=== PATIENT | female | born 1945 | race Two or more races ===

== ENCOUNTER 2018-04-13 20:05 | Emergency (ER) | payer MEDICARE, MEDICAID ==
[~2018-04-13] VITALS: Ht 162.6 cm; Wt 91.6 kg
[~2018-04-13 20:05] MED LIST: GLIP5TAB13 PO; LORA0.5T PO; LOSA25TA3 PO; SIMV10TA2 PO
--- NOTE | 2018-04-13 20:55 | NUR ---
PT BIB FAMILY, HEAD INJURY, -KO. DENIES NECK PAIN. PT STATES SHE SLIPPED FORWARD HIT HEAD ON HANDLE OF FRIDGE. ALSO C/O NAUSEA. PT AOX4. NAD NOTED. RESP EVEN AND UNLABORED. PT ON MONITOR IN BED 2. WILL CONTINUE TO MONITOR.
[2018-04-13 21:08] VITALS: BP 145/86
[2018-04-13] MEDS ORDERED: ONDANSETRON 4 MG TAB.RAPDIS ONE (21:09)
[2018-04-13] MEDS: ONDANSETRON 4 MG TAB.RAPDIS SL ONE (21:10)
[2018-04-13] MEDS ORDERED: PROCHLORPERAZINE EDISYLATE 10 MG/2 ML VIAL ONE (22:56)
[2018-04-13] MEDS: PROCHLORPERAZINE EDISYLATE 10 MG/2 ML VIAL IM ONE (23:06)
--- NOTE | 2018-04-13 23:25 | NUR ---
PT TAKEN TO RADIOLOGY VIA [facility]
--- NOTE | 2018-04-14 00:30 | NUR ---
Patient discharged to home in stable condition. Written and verbal after care instructions given. Patient verbalizes understanding of instruction. PT AMBULATORY WITH STEADY GAIT.
== END 2018-04-14 01:04 | disposition home or self-care (01) ==
LOC: ER 20:10
DX: S09.8XXA Other specified injuries of head, initial encounter (principal); M50.322 Other cervical disc degeneration at C5-C6 level; M50.323 Other cervical disc degeneration at C6-C7 level; R11.0 Nausea; R51 Headache; F41.9 Anxiety disorder, unspecified; I10 Essential (primary) hypertension; E78.5 Hyperlipidemia, unspecified; I25.10 Atherosclerotic heart disease of native coronary artery without angina pectoris; E11.9 Type 2 diabetes mellitus without complications; Z98.890 Other specified postprocedural states; Z90.710 Acquired absence of both cervix and uterus; Z88.2 Allergy status to sulfonamides; Z88.1 Allergy status to other antibiotic agents; Z88.5 Allergy status to narcotic agent; Z88.8 Allergy status to other drugs, medicaments and biological substances; Z88.0 Allergy status to penicillin; W01.198A Fall on same level from slipping, tripping and stumbling with subsequent striking against other object, initial encounter; Y93.89 Activity, other specified; Y92.000 Kitchen of unspecified non-institutional (private) residence as the place of occurrence of the external cause; Y99.8 Other external cause status
CPT/HCPCS: 70450-TC; 72125-TC; J0780; Q0162

== ENCOUNTER 2024-11-26 17:05 | Inpatient (IN) | payer MEDICARE, OTHER ==
[~2024-11-26] VITALS: Ht 165.1 cm; Wt 87.5 kg
[2024-11-26 17:40] LABS: PLATELET COUNT (AUTO) 208 K/uL (150-450); RED BLOOD CELL COUNT(AUTO) 4.35 MIL/uL (4.0-5.2); RED CELL DISTRIBUTION WIDTH 13.9 % (11.5-15.0); WHITE BLOOD COUNT (AUTO) 7.4 K/uL (4.3-11.0)
[2024-11-26] MEDS ORDERED: METF-440 PO (17:44)
[2024-11-26] MEDS ORDERED: METO-357 PO (17:44)
[2024-11-26] MEDS ORDERED: FLEC50TA2 PO (17:44)
[2024-11-26] MEDS ORDERED: APIX5TAB PO (17:44)
[2024-11-26] MEDS ORDERED: ERGO500093 PO (17:45)
[2024-11-26] MEDS ORDERED: ROSU10TA29 PO (17:45)
[2024-11-26] MEDS ORDERED: OMEP20CA15 PO (17:45)
[2024-11-26] MEDS ORDERED: PARO10TA4 PO (17:45)
[2024-11-26] MEDS ORDERED: CLON0.5T4 PO (17:45)
[2024-11-26] MEDS ORDERED: CETI10TA14 PO (17:45)
[2024-11-26] MEDS ORDERED: GABA-532 PO (17:45)
[2024-11-26] MEDS ORDERED: SITA1TAB6 PO (17:45)
[2024-11-26] MEDS: DILTIAZEM HCL 25 MG IV IV ONE (17:51)
[2024-11-26] MEDS ORDERED: DILTIAZEM HCL 50 MG IV ONE ×2 (17:52→18:37)
[2024-11-26 17:54] LABS: CALCIUM, SERUM 8.5 mg/dL (8.5-10.1); CREATININE 0.7 mg/dL (0.6-1.3); SODIUM SERUM 135 mmol/L (136-145); UREA NITROGEN, BLOOD 23 mg/dL (7-18)
[2024-11-26 18:00] LABS: ASPARTATE AMINOTRANSFERASE 22 U/L (15-37); TOTAL PROTEIN, SERUM 6.4 g/dL (6.4-8.2)
[2024-11-26] MEDS: DILTIAZEM HCL 50 MG IV IV ONE (18:43)
[2024-11-26] MEDS: DILTIAZEM HCL IV 125 MG in IV D5W 100 ML IV ONE (19:25)
[2024-11-26] MEDS ORDERED: ONDANSETRON HCL/PF 4 MG/2 ML VIAL IVP PRN (19:30)
[2024-11-26] MEDS ORDERED: DEXTROSE 50%-WATER 50 ML DISP.SYRIN IV PRN (19:30)
[2024-11-26] MEDS ORDERED: GABAPENTIN 100 MG CAPSULE PO PRN (20:00)
[2024-11-26 20:35] LABS: INR 0.97 (0.91-1.10)
[2024-11-26 22:00] VITALS: BP 111/62; TEMP 98.3; O2SAT 96
[2024-11-26] MEDS: DILTIAZEM HCL IV 125 MG in IV NS 0.9% 100 ML IV PRN (22:09)
[2024-11-26] MEDS: BLOOD SUGAR DIAGNOSTIC 1 EACH STRIP IN SCH (22:14)
[2024-11-26] MEDS: INSULIN REGULAR, HUMAN 100 UNIT/ML 3 ML VIAL SQ PRN (22:15)
[2024-11-26 22:30] VITALS: BP 91/68; O2SAT 95
[2024-11-26 23:00] VITALS: BP 100/62; O2SAT 95
[2024-11-26 23:30] VITALS: BP 93/65; O2SAT 93
[2024-11-26] MEDS: ACETAMINOPHEN 325 MG TABLET PO PRN (23:56)
[2024-11-27] VITALS (27 sets, daily range): BP systolic 88–144; BP diastolic 37–103; TEMP 97.6–98.2; O2SAT 93–98
[2024-11-27 04:36] LABS: PLATELET COUNT (AUTO) 196 K/uL (150-450); RED BLOOD CELL COUNT(AUTO) 4.33 MIL/uL (4.0-5.2); RED CELL DISTRIBUTION WIDTH 13.7 % (11.5-15.0); WHITE BLOOD COUNT (AUTO) 5.4 K/uL (4.3-11.0)
[2024-11-27 05:26] LABS: CALCIUM, SERUM 8.6 mg/dL (8.5-10.1); CREATININE 0.9 mg/dL (0.6-1.3); SODIUM SERUM 142.0 mmol/L (136-145); UREA NITROGEN, BLOOD 16.0 mg/dL (7-18)
[2024-11-27] MEDS: PANTOPRAZOLE 40 MG TABLET.DR PO SCH (08:32)
[2024-11-27] MEDS: ASPIRIN 81 MG TAB.CHEW PO SCH (08:32)
[2024-11-27] MEDS: APIXABAN 5 MG TABLET PO SCH (08:33)
[2024-11-27] MEDS: METOPROLOL SUCCINATE 25 MG TAB.SR.24H PO SCH (08:33)
[2024-11-27] MEDS: PAROXETINE HCL 10 MG TABLET PO SCH (08:36)
[2024-11-27] MEDS: cetrizine 10 MG TABLET PO SCH (08:41)
[2024-11-27 09:17] LABS: LDL 47 mg/dL (0-99)
[2024-11-27] MEDS: FLECAINIDE ACETATE (100 MG) 100 MG TABLET PO SCH (10:41)
[2024-11-27] MEDS: ATORVASTATIN 40 MG TABLET PO SCH (17:26)
[2024-11-28] VITALS: BP 130/67; TEMP 97.3; O2SAT 99
[2024-11-28 04:00] VITALS: BP 114/57; TEMP 98.1; O2SAT 96
[2024-11-28 06:06] LABS: PLATELET COUNT (AUTO) 195 K/uL (150-450); RED BLOOD CELL COUNT(AUTO) 4.33 MIL/uL (4.0-5.2); RED CELL DISTRIBUTION WIDTH 13.8 % (11.5-15.0); WHITE BLOOD COUNT (AUTO) 4.7 K/uL (4.3-11.0)
[2024-11-28 06:30] LABS: CALCIUM, SERUM 8.4 mg/dL (8.5-10.1); CREATININE 0.7 mg/dL (0.6-1.3); SODIUM SERUM 141.0 mmol/L (136-145); UREA NITROGEN, BLOOD 13.0 mg/dL (7-18)
[2024-11-28 06:37] LABS: PHOSPHORUS 4.0 mg/dL (2.5-4.9)
[2024-11-28 08:56] VITALS: BP 133/63
[2024-11-28] MEDS ORDERED: FLEC100T2 PO (12:51)
== END 2024-11-28 13:15 | disposition home or self-care (01) | DRG 282 ==
LOC: ER 17:08 → ICUOV2 21:36 → ICU 21:53 → TELE 11-27 18:23
PROVIDERS: ADMIT Registered Nurse Psychiatric/Mental Health; ATTEND Nurse Practitioner Family
DX: I48.91 Unspecified atrial fibrillation (principal); I21.A1 Myocardial infarction type 2; E78.5 Hyperlipidemia, unspecified; E11.65 Type 2 diabetes mellitus with hyperglycemia; I10 Essential (primary) hypertension; I25.10 Atherosclerotic heart disease of native coronary artery without angina pectoris; Z79.84 Long term (current) use of oral hypoglycemic drugs; Z88.2 Allergy status to sulfonamides; Z95.0 Presence of cardiac pacemaker; Z79.01 Long term (current) use of anticoagulants; R79.89 Other specified abnormal findings of blood chemistry
CPT/HCPCS: 36415; 71045-TC; 80048-TC; 80061-TC; 80076-TC; 82962-TC; 83735-TC; 83880; 84100-TC; 84443-TC; 84484-TC; 85025-TC; 85610-TC; 87081-TC; 93307-TC; A4223; G0378; J1815; J3490; J7030; J7060